=== PATIENT | female | born 1985 | race Caucasian/White ===

== ENCOUNTER 2016-08-15 15:20 | Emergency (ER) | payer MEDICAID ==
[~2016-08-15] VITALS: Ht 154.9 cm; Wt 52.3 kg
[~2016-08-15 15:20] MED LIST: IBUP-1542 PO
[2016-08-15] MEDS ORDERED: SOD CHLORIDE 0.9% 1,000 ML IV STA (15:46)
[2016-08-15 15:52] VITALS: Ht 154.9 cm; Wt 52.3 kg
--- NOTE | 2016-08-15 16:14 | RADRPT ---
PROCEDURE: XR Chest. CLINICAL INDICATION: chest pain, syncope TECHNIQUE: Single frontal view of the chest was obtained COMPARISON: 04/19/2014 FINDINGS: The heart and mediastinum are within normal limits. The lungs are clear. There is no pleural effusion or pneumothorax. RPTAT: AA IMPRESSION: No acute disease. .Danny Cook MD, MD Date Time Electronically viewed and signed by .Danny Cook MD, on 08/15/2016 16:13 .S/
--- NOTE | 2016-08-15 16:14 | RADRPT ---
PROCEDURE: Right wrist x-ray CLINICAL INDICATION: pain TECHNIQUE: AP, lateral and oblique views of the wrist were obtained. COMPARISON: None FINDINGS: There is normal mineralization. No acute fracture or dislocation is seen. There are no significant degenerative changes. There is no significant soft tissue swelling. RPTAT: AA IMPRESSION: Normal x-ray of the right wrist. .Danny Cook MD, MD Date Time Electronically viewed and signed by .Danny Cook MD, on 08/15/2016 16:14 .S/
[2016-08-15 16:17] LABS: BASOPHILS % 0.1 % (0.0-2.0); CHLORIDE 101 mmol/L (97-110); CONDITION 1; EOSINOPHILS % 0.1 % (0.0-7.0); HEMATOCRIT 39.8 % (37.0-47.0); HEMOGLOBIN 13.4 g/dl (12.0-16.0); LYMPHOCYTES # 0.7 10^3/ul (0.8-2.9); LYMPHOCYTES % 5.9 % (15.0-51.0); MEAN CORPUSCULAR HEMOGLOBIN 29.5 pg (29.0-33.0); MEAN CORPUSCULAR HGB CONC 33.7 g/dl (32.0-37.0); MEAN CORPUSCULAR VOLUME 87.4 fl (82.0-101.0); MEAN PLATELET VOLUME 10.1 fl (7.4-10.4); MONOCYTE # 0.6 10^3/ul (0.3-0.9); MONOCYTES % 4.8 % (0.0-11.0); NEUTROPHIL # 10.2 10^3/ul (1.6-7.5); NEUTROPHILS % 89.1 % (39.0-77.0); PLATELET COUNT 225 10^3/UL (140-440); RED BLOOD COUNT 4.56 10^6/ul (4.20-5.40); RED CELL DISTRIBUTION WIDTH 12.9 % (11.5-14.5); SODIUM 140 mmol/L (135-144); UNCORRECTED WBC 11.5 10^3/ul (4.8-10.8); WHITE BLOOD COUNT 11.5 10^3/ul (4.8-10.8)
[2016-08-15 16:18] LABS: POTASSIUM 4.5 mmol/L (3.5-5.1)
[2016-08-15 16:20] LABS: ANION GAP 19 (8-16); CARBON DIOXIDE 25 mmol/L (21-31); CREATININE 0.64 mg/dl (0.44-1.00)
[2016-08-15 16:21] LABS: BLOOD UREA NITROGEN 9 mg/dl (7-20); CALCIUM 9.6 mg/dl (8.4-10.2); GLUCOSE 101 mg/dl (70-220)
[2016-08-15 16:40] LABS: TROPONIN-I < 0.012 ng/ml (0.00-0.12)
[2016-08-15 17:37] LABS: ADD UMIC YES; URINE BILIRUBIN (Dip) NEGATIVE (NEGATIVE); URINE BLOOD (Dip) NEGATIVE (NEGATIVE); URINE COLOR LT. YELLOW (YELLOW); URINE GLUCOSE (Dip) NEGATIVE (NEGATIVE); URINE KETONES (Dip) NEGATIVE (NEGATIVE); URINE LEUKOCYTE ESTERASE (Dip) TRACE (NEGATIVE); URINE NITRITE (Dip) NEGATIVE (NEGATIVE); URINE TOTAL PROTEIN (Dip) NEGATIVE (NEGATIVE); URINE UROBILINOGEN (Dip) 0.2 E.U./dL (0.1-1.0)
[2016-08-15 17:54] LABS: BACTERIA,URINE FEW; URINE RBCS 0-2 /HPF (0)
--- NOTE | 2016-08-15 18:39 | RADRPT ---
PROCEDURE: CT brain without contrast CLINICAL INDICATION: Syncope TECHNIQUE: A CT of the brain was performed utilizing axial sections from the skull base through th e vertex without contrast. Sagittal and coronal images were also reformatted. The exam CTDIvol = 41. 12 mGy and DLP = 630.20 mGy-cm. COMPARISON: None available FINDINGS: No acute intracranial hemorrhage is identified. There is no mass effect or midline shift. No extra -axial fluid collection is seen. The ventricles and sulci are within normal limits for size and con figuration. The density of the brain is within normal limits. Moy-white differentiation is preser cas. The osseous structures are unremarkable. The mastoid air cells and visualized paranasal sinuses are clear. RPTAT:HJJR IMPRESSION: Unremarkable noncontrast CT of the brain. Physician Heath Date Time Electronically viewed and signed by Physician Heath on 08/15/2016 18:39 /
--- NOTE | 2016-08-15 18:41 | RADRPT ---
PROCEDURE: CT cervical spine without contrast. CLINICAL INDICATION: Syncope. Neck pain. TECHNIQUE: CT of the cervical spine without contrast was performed. Axial images were obtained th rough the cervical spine and reformatted at 1.25 mm slice thickness. Coronal and sagittal images wer e reformatted. Exam CTDIvol = 18.05 mGy and DLP = 334.91 mGy-cm. COMPARISON: None available. FINDINGS: Vertebral bodies: The lordosis is straightened. Stature is preserved at every level. There is norm al mineralization and trabeculation. The C1 ring is intact and the predental space is preserved. Central canal and cervical spinal cord: No abnormal density within the spinal cord is evident and no intraspinal masses are delineated. C2-3: The disk is within normal limits. The facet joints are normal. The uncovertebral joints and f oramina are unremarkable. C3-4: The disk is within normal limits. The facet joints are normal. The uncovertebral joints and foramina are unremarkable. C4-5: The disk is within normal limits. The facet joints are normal. The uncovertebral joints and foramina are unremarkable. C5-6: The disk is within normal limits. The facet joints are normal. The uncovertebral joints and foramina are unremarkable. C6-7: The disk is within normal limits. The facet joints are normal. The uncovertebral joints and foramina are unremarkable. C7-T1: The disk is within normal limits. The facet joints are normal. The uncovertebral joints and foramina are unremarkable. Non spine related findings: No abnormalities of significance are seen. RPTAT:HJJR IMPRESSION: 1. Straightening of the normal cervical lordosis may be from positioning but cannot exclude muscle spasm. 2. Otherwise unremarkable noncontrast CT of the cervical spine. Physician Heath Date Time Electronically viewed and signed by Physician Heath on 08/15/2016 18:40 JR/
[2016-08-15] MEDS ORDERED: IBUP800T25 PO (18:59)
--- NOTE | 2016-08-15 19:12 | ERD ---
ER Documentation Chief Complaint Date/Time DATE: 08/15/16 TIME: 19:00 Chief Complaint BROUGHT IN VIA EMS DUE TO SYNCOPAL EPISODE WITH FIELD LOW BS HPI 30-year-old female who presents with an episode of syncope. Glove Cutter use. The patient states that there was a prodrome of vision closing in and slight diaphoresis. She states that there has been multiple episodes of this in the past usually related to borderline glucose. Her Accu-Chek in the field was 50. She was given oral dextrose. The patient did hit her head and lose consciousness. She describes diffuse neck pain, right wrist pain. She denied any prodrome of chest pain, shortness of breath or pleuritic pain. She states over the past 6-9 months she has had approximately 7 episodes of this without full loss of consciousness. She denies any exertional symptoms, no chest pain. She has not been to an emergency room for this process and does not have a primary care doctor. ROS All systems reviewed and are negative except as per history of present illness. Medications Home Meds Active Scripts Ibuprofen* (Motrin*) 800 Mg Tab, 800 MG PO Q6H Y for PAIN AND OR ELEVATED TEMP, #30 TAB Prov:JAVON PRADHAN MD 08/15/16 Discontinued Reported Medications Ibuprofen* (Ibuprofen*) 600 Mg Tablet, 600 MG PO Q6H Y for PAIN, TAB 04/18/14 Allergies Allergies: Coded Allergies: No Known Allergy (Unverified , 08/15/16) PMhx/Soc History of Surgery: Yes () Anesthesia Reaction: No Hx Neurological Disorder: No Hx Respiratory Disorders: No Hx Cardiac Disorders: Yes (hypertension) Hx Psychiatric Problems: No Hx Miscellaneous Medical Probl: No Hx Alcohol Use: No Hx Substance Use: No Hx Tobacco Use: No Smoking Status: Never smoker FmHx Family History: No coronary disease, No diabetes Physical Exam Vitals Vital Signs Date Time Temp Pulse Resp B/P Pulse Ox O2 Delivery O2 Flow Rate FiO2 08/15/16 19:39 90 16 112/74 100 Room Air 08/15/16 17:00 88 22 108/62 97 Room Air 08/15/16 15:52 98.2 80 18 118/81 98 Physical Exam General: Well developed, well nourished, no acute distress Head: Normocephalic, atraumatic other than small occipital hematoma Eyes: Pupils equally reactive, EOM intact ENT: Moist mucous membranes Neck: Supple, no lymphadenopathy, diffuse paraspinal soft tissue tenderness to the neck with intermittent midline tenderness but no deformities Respiratory: Lungs clear bilaterally, no distress Cardiovascular: RRR, no murmurs, rubs, or gallops Abdominal: Soft, non-tender, non-distended, no peritoneal signs : Deferred MSK: No edema, no unilateral swelling, 5/5 strength. Soft tissue tenderness to the right wrist with full active and passive range of motion, no snuffbox tenderness. Radial, median, ulnar nerves are intact. Neurologic: Alert and oriented, moving all extremities, normal speech, no focal weakness, no cerebellar signs Skin: Small abrasion noted the right wrist Psych: Normal mood Result Diagram: 08/15/16 1555 08/15/16 1555 Results 24 hrs Laboratory Tests Test 08/15/16 15:55 08/15/16 17:25 Anion Gap 19 Basophils # 0.010^3/ul Basophils % 0.1% Blood Urea Nitrogen 9mg/dl Calcium Level 9.6mg/dl Carbon Dioxide Level 25mmol/L Chloride Level 101mmol/L Creatinine 0.64mg/dl Eosinophils # 0.010^3/ul Eosinophils % 0.1% Glucose Level 101mg/dl Hematocrit 39.8% Hemoglobin 13.4g/dl Lymphocytes # 0.710^3/ul Lymphocytes % 5.9% Mean Corpuscular Hemoglobin 29.5pg Mean Corpuscular Hemoglobin Concent 33.7g/dl Mean Corpuscular Volume 87.4fl Mean Platelet Volume 10.1fl Monocytes # 0.610^3/ul Monocytes % 4.8% Neutrophils # 10.210^3/ul Neutrophils % 89.1% Nucleated Red Blood Cells # 0.010^3/ul Nucleated Red Blood Cells % 0.0/100WBC Platelet Count 72484^3/UL Potassium Level 4.5mmol/L Red Blood Count 4.5610^6/ul Red Cell Distribution Width 12.9% Sodium Level 140mmol/L Troponin I < 0.012ng/ml White Blood Count 11.510^3/ul Urine Bacteria FEW Urine Bilirubin NEGATIVE Urine Clarity CLEAR Urine Color LT. YELLOW Urine Epithelial Cells FEW Urine Glucose NEGATIVE% Urine Hemoglobin NEGATIVE Urine Ketones NEGATIVE Urine Leukocyte Esterase TRACE Urine Microscopic RBC 0-2/HPF Urine Microscopic WBC 5-10/HPF Urine Nitrite NEGATIVE Urine Specific Bartlett 1.015 Urine Total Protein NEGATIVE Urine Urobilinogen 0.2 E.U./dL Urine pH 8.5 Current Medications Medications (Trade) Dose Ordered Sig/Priya Route PRN Reason Start Time Stop Time Status Last Admin Dose Admin Sodium Chloride (NS) 1,000 ml @ 1,000 mls/hr Q1H STAT IV 08/15/16 15:46 08/15/16 16:45 DC Procedures/MDM EKG, MONITORS, & DIAGNOSTIC IMAGING: EKG: I reviewed and interpreted a 12-lead EKG. Rhythm: Normal sinus rhythm Ectopy: None Intervals: No abnormalities QT is 432, QTc is 475, no Brugada ST segments: No elevations or depressions T waves: No contiguous inversions X-ray right wrist: I reviewed and interpreted multiple views of the x-ray Bones: No evidence of acute fracture dislocation or subluxation Soft tissue: No evidence of foreign body Chest x-ray: I reviewed and interpreted a 1 view of the chest Mediastinum: No enlargement Cardiac silhouette: No cardiomegaly Airspace: Clear lung mojica bilaterally without evidence of pneumothorax Bones: No evidence of fracture CT brain: No acute process CT cervical spine: No acute process LAB INTERPRETATION: Normal glucose, negative ECG MEDICAL DECISION MAKING: The patient is describing approximately 7 episodes of syncope over a 6-9 month period. This is concerning. Consider possible vasovagal syndrome given her prodrome. This does not seem to be a consistent with cardiogenic etiology, no exertional symptoms, no murmur. Her glucose has been low in the past but she has never been evaluated. It seems unlikely that this would be an insulinoma, her glucose is normal here. She continues to be well-appearing. The patient did fall hit her head she has a small occipital hematoma and is having neck pain. CT imaging of the head and neck would be appropriate. She has no snuffbox tenderness of the right wrist. ER COURSE: The patient continue be well-appearing I was able to clinically clear his cervical spine. The patient had a borderline QT. Given the patient's recurrent episodes of syncope it would be unlikely but not impossible that this is a prolonged QT syndrome. For this reason I spoke to Dr. Crowe who was kind enough to review the case. He reviewed the EKG. He did recommend inpatient hospitalization for close observation though felt that it was borderline prolonged and unlikely to be clinically significant. I had a prolonged conversation with the patient using an nurse sitter. I discussed the risk benefits and alternatives and recommended inpatient hospitalization. For family reasons the patient does not wish to be hospitalized. Unfortunately she does not have a primary care physician which is 1 of the reasons why I wanted her hospitalized. However she states understanding of the risks benefits and alternatives and would like to leave against my medical advice. I understand her decision but strongly recommended close primary care follow-up and return precautions for any recurrent syncope. I kept the patient and/or family informed of laboratory and diagnostic imaging results throughout the emergency room course. DISPOSITION PLAN: We discussed follow up with the patient's primary care doctor within 24 to 48 hours as needed. We also discussed return to the emergency room for worsening symptoms or worsening condition. Discharge Medications: Motrin Departure Diagnosis: Primary Impression: Syncope Syncope type: unspecified Qualified Code: R55 - Syncope, unspecified syncope type Additional Impressions: Hypoglycemia Contusion of right wrist Encounter type: initial encounter Qualified Code: S60.211A - Contusion of right wrist, initial encounter Condition: Stable Patient Instructions: Causes of Syncope, Syncope, Unk Cause Referrals: [facility] Usted se zhou hecho un examen mdico de control que le indica que no est en dennise condicin que requiera tratamiento urgente en el Departamento de Emergencia. Un estudio ms profundo y el tratamiento de collier condicin pueden esperar sin ningn riesgo hasta que usted sea atendida/o en el consultorio de collier mdico o dennise cl sonam. Es responsabilidad suya arreglar dennise lizeth para el seguimiento del patricia. MANEJO DE CONDICIONES NO URGENTES EN EL FUTURO 1) Si usted tiene un mdico de atencin primaria: Usted debera llamar a collier mdico de atencin primaria antes de venir al departamento de emergencia. Despus de las horas de consultorio, collier doctor o collier asociado/a est disponible por telfono. El mdico o enfermero de renetta en el servicio telefnico puede asesorarle por mandy medio para atender el problema, o patricia contrario se puede programar dennise lizeth. 2) Si usted no tiene un mdico de atencin primaria: Llame al mdico o clnica de referencia que aparece abajo carina las horas de consultorio para hacer dennise lizeth para que le vean. CLINICAS: [facility] [phone] [facility] [phone] [facility] [phone] [address] [facility] [phone] [address] [facility]. [facility] [phone] [address] [facility] [phone] [address] [facility]. [facility] () Usted se zhou hecho un examen mdico de control que le indica que no est en dennise condicin que requiera tratamiento urgente en el Departamento de Emergencia. Un estudio ms profundo y el tratamiento de collier condicin pueden esperar sin ningn riesgo hasta que usted sea atendida/o en el consultorio de collier mdico o dennise cl sonam. Es responsabilidad suya arreglar dennise lizeth para el seguimiento del patricia. MANEJO DE CONDICIONES NO URGENTES EN EL FUTURO 1) Si usted tiene un mdico de atencin primaria: Usted debera llamar a collier mdico de atencin primaria antes de venir al departamento de emergencia. Despus de las horas de consultorio, collier doctor o collier asociado/a est disponible por telfono. El mdico o enfermero de renetta en el servicio telefnico puede asesorarle por mandy medio para atender el problema, o patricia contrario se puede programar dennise lizeth. 2) Si usted no tiene un mdico de atencin primaria: Llame al mdico o condado institucions de referencia que aparece abajo carina las horas de consultorio para hacer dennise lizeth para que le vean. SI USTED NO PUEDE PAGAR PARA GIDEON UN MEDICO puede ir a: [facility] [address] [place] [address] [facility] [address] [place] [address] [facility] [address] [place] [address] [facility] [address] [place], [place] [id number] Additional Instructions: Llame al doctor nombrado abajo (Referral Sources) MAANA y preet dennise LIZETH PARA DENTRO DE DENNISE SEMANA. Dgale a la secretaria que nosotros le instruimos hacer esta lizeth.Avise o llame si collier condicin se empeora antes de la lizeth. JAVON PRADHAN MD Aug 15, 2016 19:12
[2016-08-15 19:39] VITALS: BP 112/74; PULSE 90; RESP 16
== END 2016-08-15 20:02 | disposition home or self-care (01) ==
LOC: E/R 15:20
DX: R55 Syncope and collapse (principal); E16.2 Hypoglycemia, unspecified; S60.211A Contusion of right wrist, initial encounter; I10 Essential (primary) hypertension; W01.198A Fall on same level from slipping, tripping and stumbling with subsequent striking against other object, initial encounter; Y92.9 Unspecified place or not applicable
CPT/HCPCS: 70450; 71010; 72125; 73110; 80048; 81001; 83735; 84484; 85025; 93005; J7030; Z7502; 81003

== ENCOUNTER 2017-03-30 02:56 | Emergency (ER) | payer MEDICAID ==
[~2017-03-30] VITALS: Ht 157.5 cm; Wt 42.7 kg
[~2017-03-30 02:56] MED LIST changes: -IBUP-1542 PO; +IBUP800T25 PO
[2017-03-30 03:08] VITALS: Ht 157.5 cm; Wt 42.7 kg
[2017-03-30 03:51] LABS: URINE BLOOD (Dip) POC Negative (NEGATIVE)
[2017-03-30] MEDS ORDERED: SOD CHLORIDE 0.9% 1,000 ML IV STA (04:02)
[2017-03-30 04:23] LABS: BASOPHILS % 0.2 % (0.0-2.0); EOSINOPHILS % 0.1 % (0.0-7.0); HEMATOCRIT 38.9 % (37.0-47.0); HEMOGLOBIN 13.9 g/dl (12.0-16.0); LYMPHOCYTES # 1.1 10^3/ul (0.8-2.9); LYMPHOCYTES % 11.7 % (15.0-51.0); MEAN CORPUSCULAR HEMOGLOBIN 30.4 pg (29.0-33.0); MEAN CORPUSCULAR HGB CONC 35.7 g/dl (32.0-37.0); MEAN CORPUSCULAR VOLUME 85.1 fl (82.0-101.0); MEAN PLATELET VOLUME 11.6 fl (7.4-10.4); MONOCYTE # 0.5 10^3/ul (0.3-0.9); MONOCYTES % 5.1 % (0.0-11.0); NEUTROPHILS % 82.7 % (39.0-77.0); PLATELET COUNT 212 10^3/UL (140-415); RED BLOOD COUNT 4.57 10^6/ul (4.20-5.40); RED CELL DISTRIBUTION WIDTH 12.2 % (11.5-14.5); WHITE BLOOD COUNT 9.7 10^3/ul (4.8-10.8)
[2017-03-30 04:38] LABS: INR 1.08; PT RATIO 1.1
[2017-03-30 04:39] LABS: PARTIAL THROMBOPLASTIN TIME 26.5 Sec (25.0-35.0)
[2017-03-30 04:42] LABS: ALANINE AMINOTRANSFERASE 38 IU/L (13-69); ALBUMIN 4.1 g/dl (3.3-4.9); ALBUMIN/GLOBULIN RATIO 1.13; ALKALINE PHOSPHATASE 97 IU/L (42-121); ANION GAP 12 (8-16); ASPARTATE AMINO TRANSFERASE 27 IU/L (15-46); BILIRUBIN,INDIRECT 0.8 mg/dl (0-1.1); BILIRUBIN,TOTAL 0.8 mg/dl (0.2-1.3); BLOOD UREA NITROGEN 8 mg/dl (7-20); CARBON DIOXIDE 21 mmol/L (21-31); CHLORIDE 105 mmol/L (97-110); CREATININE 0.65 mg/dl (0.44-1.00); GLUCOSE 99 mg/dl (70-220); SODIUM 135 mmol/L (135-144); TOTAL PROTEIN 7.7 g/dl (6.1-8.1)
[2017-03-30] MEDS ORDERED: ALPRAZOLAM 0.25 MG TAB PO ONE (05:08)
[2017-03-30] MEDS ORDERED: POTASSIUM CHLORIDE (SR) 20 MEQ TAB PO ONE (05:08)
[2017-03-30 05:22] LABS: TROPONIN-I < 0.012 ng/ml (0.00-0.12)
[2017-03-30] MEDS ORDERED: LIDOCAINE/MYLANTA 40 ML BTL PO ONE (05:30)
[2017-03-30] MEDS ORDERED: RANI150T9 PO (05:52)
[2017-03-30] MEDS ORDERED: ONDA4TAB11 PO (05:52)
[2017-03-30 06:04] VITALS: BP 109/67; PULSE 89; RESP 18
--- NOTE | 2017-03-30 06:05 | ERD ---
ER Documentation Chief Complaint Date/Time DATE: 03/30/17 TIME: 05:56 Chief Complaint chest pain x 3 days on and off, weakness, dizzinesss, abnorma labs low hgb HPI This 31-year-old female presents for on and off chest pain for 3 days as well as lightheadedness and tiredness. She states that she has a history of very low hemoglobin. She denies any GI bleeding vaginal bleeding or vaginal symptoms. Denies cough fever or chills. ROS All systems reviewed and are negative except as per history of present illness. Medications Home Meds Active Scripts Ondansetron (Zofran Odt) 4 Mg Tab.rapdis, 4 MG PO Q6, #10 Prov:CORINNE MEYERS DO 03/30/17 Ranitidine Hcl* (Zantac*) 150 Mg Tablet, 150 MG PO BID, #60 TAB Prov:CORINNE MEYERS DO 03/30/17 Discontinued Scripts Ibuprofen* (Motrin*) 800 Mg Tab, 800 MG PO Q6H Y for PAIN AND OR ELEVATED TEMP, #30 TAB Prov:JAVON PRADHAN MD 08/15/16 Allergies Allergies: Coded Allergies: No Known Allergy (Unverified , 03/30/17) PMhx/Soc History of Surgery: Yes (c/s x 2) Anesthesia Reaction: No Hx Neurological Disorder: No Hx Respiratory Disorders: No Hx Cardiac Disorders: Yes (hypertension) Hx Psychiatric Problems: No Hx Miscellaneous Medical Probl: Yes (anemia) Hx Alcohol Use: No Hx Substance Use: No Hx Tobacco Use: No Smoking Status: Never smoker Physical Exam Vitals Vital Signs Date Time Temp Pulse Resp B/P Pulse Ox O2 Delivery O2 Flow Rate FiO2 03/30/17 03:08 98.3 69 20 129/69 100 Physical Exam Const: [] Mild distress, appears uncomfortable Head: Atraumatic Eyes: Normal Conjunctiva ENT: Normal External Ears, Nose and Mouth. Neck: Full range of motion..~ No meningismus. Resp: Clear to auscultation bilaterally Cardio: Regular rate and rhythm, no murmurs Abd: Soft, non tender, non distended. Normal bowel sounds Skin: No petechiae or rashes Back: No midline or flank tenderness Ext: No cyanosis, or edema Neur: Awake and alert and oriented 3, no acute stress. Psych: Normal Mood and Affect Result Diagram: 03/30/17 0403 03/30/17 0403 Results 24 hrs Laboratory Tests Test 03/30/17 03:57 03/30/17 04:03 Bedside Urine pH (LAB) 7.0 Bedside Urine Protein (LAB) Negative Bedside Urine Glucose (UA) Negative Bedside Urine Ketones (LAB) Trace Bedside Urine Blood Negative Bedside Urine Nitrite (LAB) Negative Bedside Urine Leukocyte Esterase (L Negative White Blood Count 9.710^3/ul Red Blood Count 4.5710^6/ul Hemoglobin 13.9g/dl Hematocrit 38.9% Mean Corpuscular Volume 85.1fl Mean Corpuscular Hemoglobin 30.4pg Mean Corpuscular Hemoglobin Concent 35.7g/dl Red Cell Distribution Width 12.2% Platelet Count 84275^3/UL Mean Platelet Volume 11.6fl Neutrophils % 82.7% Lymphocytes % 11.7% Monocytes % 5.1% Eosinophils % 0.1% Basophils % 0.2% Nucleated Red Blood Cells % 0.0/100WBC Neutrophils # 8.010^3/ul Lymphocytes # 1.110^3/ul Monocytes # 0.510^3/ul Eosinophils # 0.010^3/ul Basophils # 0.010^3/ul Nucleated Red Blood Cells # 0.010^3/ul Prothrombin Time 14.0Sec Prothrombin Time Ratio 1.1 INR International Normalized Ratio 1.08 Activated Partial Thromboplast Time 26.5Sec Sodium Level 135mmol/L Potassium Level 3.0mmol/L Chloride Level 105mmol/L Carbon Dioxide Level 21mmol/L Anion Gap 12 Blood Urea Nitrogen 8mg/dl Creatinine 0.65mg/dl Glucose Level 99mg/dl Calcium Level 9.0mg/dl Total Bilirubin 0.8mg/dl Direct Bilirubin 0.00mg/dl Indirect Bilirubin 0.8mg/dl Aspartate Amino Transf (AST/SGOT) 27IU/L Alanine Aminotransferase (ALT/SGPT) 38IU/L Alkaline Phosphatase 97IU/L Troponin I < 0.012ng/ml Total Protein 7.7g/dl Albumin 4.1g/dl Globulin 3.60g/dl Albumin/Globulin Ratio 1.13 Current Medications Medications (Trade) Dose Ordered Sig/Priya Route PRN Reason Start Time Stop Time Status Last Admin Dose Admin Sodium Chloride (NS) 1,000 ml @ 1,000 mls/hr Q1H STAT IV 03/30/17 04:02 03/30/17 05:01 DC 03/30/17 04:24 Miscellaneous Medication (Gi Cocktail (2)) 40 ml ONCE ONCE PO 03/30/17 05:30 03/30/17 05:31 DC 03/30/17 05:25 Potassium Chloride (Klor-Con 20) 40 meq ONCE ONCE PO 03/30/17 05:08 03/30/17 05:09 DC 03/30/17 05:25 Alprazolam (Xanax) 0.5 mg ONCE ONCE PO 03/30/17 05:08 03/30/17 05:09 DC 03/30/17 05:25 Procedures/MDM And adult female with chest pain possibly associated with GERD. No anemia to speak patient was very concerned she had severe anemia once again. She has mild hyperkalemia and was treated with a potassium p.o. tablet.. She was also given a liter of normal saline and a GI cocktail after which she felt much better. She is not I am discharging her with primary care follow-up as well as return precautions. EKG interpretation: Normal sinus rhythm rate of 73, normal axis, mildly shortened DE interval, no ST or T-wave changes concerning for acute ischemia. secured entrance monitor interpretation: Normal sinus rhythm without arrhythmia Departure Diagnosis: Primary Impression: Light-headed Additional Impressions: Chest pain Hypokalemia Condition: Stable Patient Instructions: Nausea and Vomiting-Adult, Chest Pain, Uncertain Cause Referrals: [facility] YOU HAVE RECEIVED A MEDICAL SCREENING EXAM AND THE RESULTS INDICATE THAT YOU DO NOT HAVE A CONDITION THAT REQUIRES URGENT TREATMENT IN THE EMERGENCY DEPARTMENT. FURTHER EVALUATION AND TREATMENT OF YOUR CONDITION CAN WAIT UNTIL YOU ARE SEEN IN YOUR DOCTORS OFFICE WITHIN THE NEXT 1-2 DAYS. IT IS YOUR RESPONSIBILITY TO MAKE AN APPOINTMENT FOR FOLOW-UP CARE. IF YOU HAVE A PRIMARY DOCTOR --you should call your primary doctor and schedule an appointment IF YOU DO NOT HAVE A PRIMARY DOCTOR YOU CAN CALL OUR PHYSICIAN REFERRAL HOTLINE AT IF YOU CAN NOT AFFORD TO SEE A PHYSICIAN YOU CAN CHOSE FROM THE FOLLOWING [facility] CLINICS [facility] [address] [facility]. [facility] [address] [facility]. [facility] [address] [facility] [facility] [address] [facility]. [facility] [address] [facility]. [facility]. [address] Additional Instructions: Llame al doctor MAANA y preet dennise LIZETH PARA DENTRO DE 2-3 GUERRERO.Dgale a la secretaria que nosotros le instruimos hacer esta lizeth.Avise o llame si collier condicin se empeora antes de la lizeth. Regresa aqui si peor o no mejor. CORINNE MEYERS DO Mar 30, 2017 06:05
== END 2017-03-30 06:05 | disposition home or self-care (01) ==
LOC: E/R 02:56
DX: R42 Dizziness and giddiness (principal); R07.9 Chest pain, unspecified; E87.6 Hypokalemia; I10 Essential (primary) hypertension
CPT/HCPCS: 36415; 80053; 81003; 84484; 85025; 85610; 85730; 93005; J7030; Z7502; Z7610

== ENCOUNTER 2017-04-07 18:12 | Emergency (ER) | payer MEDICAID ==
[~2017-04-07] VITALS: Ht 154.9 cm; Wt 46.5 kg
[~2017-04-07 18:12] MED LIST changes: -IBUP800T25 PO; +ONDA4TAB11 PO; +RANI150T9 PO
[2017-04-07 18:15] VITALS: Ht 154.9 cm; Wt 46.5 kg
[2017-04-07] MEDS ORDERED: ONDANSETRON 4 MG INJ IV STA (18:33)
[2017-04-07] MEDS ORDERED: SOD CHLORIDE 0.9% 1,000 ML IV STA (18:33)
[2017-04-07] MEDS ORDERED: FAMOTIDINE 20 MG TAB PO STA (18:33)
--- NOTE | 2017-04-07 18:35 | ERD ---
ER Documentation Chief Complaint Date/Time DATE: 04/07/17 TIME: 18:34 Chief Complaint Complains of epigastric pain x 2 days HPI 31-year-old female without any stated medical problems presenting to the emergency department complaining of intermittent epigastric pain that radiates to her back for the past month which worsening constant pain in the past 2 days. Patient associated with nausea and was non-bloody nonbilious vomiting. Patient denies any fevers, diarrhea. Denies any abdominal surgeries. States that she does not take any medications ROS All systems reviewed and are negative except as per history of present illness. Medications Home Meds Active Scripts Ondansetron (Ondansetron Odt) 4 Mg Tab.rapdis, 4 MG PO Q6H Y for NAUSEA AND/OR VOMITING, #10 TAB Prov:RADHA GUADALUPE PA-C 04/07/17 Acetaminophen* (Tylenol*) 325 Mg Tablet, 2 TAB PO Q4 Y for PAIN AND OR ELEVATED TEMP, #30 TAB Prov:RADHA GUADALUPE PA-C 04/07/17 Ondansetron (Zofran Odt) 4 Mg Tab.rapdis, 4 MG PO Q6, #10 Prov:CORINNE MEYERS DO 03/30/17 Ranitidine Hcl* (Zantac*) 150 Mg Tablet, 150 MG PO BID, #60 TAB Prov:CORINNE MEYERS DO 03/30/17 Allergies Allergies: Coded Allergies: No Known Allergy (Unverified , 03/30/17) PMhx/Soc History of Surgery: Yes (c/s x 2) Anesthesia Reaction: No Hx Neurological Disorder: No Hx Respiratory Disorders: No Hx Cardiac Disorders: Yes (hypertension) Hx Psychiatric Problems: No Hx Miscellaneous Medical Probl: Yes (anemia) Hx Alcohol Use: No Hx Substance Use: No Hx Tobacco Use: No Physical Exam Vitals Vital Signs Date Time Temp Pulse Resp B/P Pulse Ox O2 Delivery O2 Flow Rate FiO2 04/07/17 18:15 98.5 89 20 126/79 100 Physical Exam GENERAL: well-developed/well-nourished, in no apparent distress, non-toxic appearing HENT: NC/AT, moist mucous membranes EYES: Conjunctiva normal NECK: Supple, no lymphadenopathy PULM: CTA bilaterally, no rales, rhonchi, or wheezing heard CV: Normal S1S2, RRR, good capillary refill GI: Soft, non-distended, tender to palpation gastric and right upper quadrant Normal bowel sounds, no masses or organomegaly felt on exam No gross peritonitis, no bruits Negative Rovsing, negative Hammonds, negative McBurney's point, Negative CVAT BACK: No masses EXT: No clubbing, cyanosis, or edema NEURO: Alert and Orientated SKIN: Intact, normal turgor PSYCH: Normal mood and mentation Result Diagram: 04/07/17185404/07/171854 Results 24 hrs Laboratory Tests Test 04/07/17 18:45 04/07/17 18:55 Urine Color STRAW Urine Clarity CLEAR Urine pH 7.0 Urine Specific [place] 1.002 Urine Ketones NEGATIVEmg/dL Urine Nitrite NEGATIVEmg/dL Urine Bilirubin NEGATIVEmg/dL Urine Urobilinogen NEGATIVEmg/dL Urine Leukocyte Esterase NEGATIVELeu/ul Urine Microscopic RBC 1/HPF Urine Microscopic WBC 0/HPF Urine Hemoglobin 2+mg/dL Urine Glucose NEGATIVEmg/dL Urine Total Protein NEGATIVEmg/dl White Blood Count 4.210^3/ul Red Blood Count 4.1510^6/ul Hemoglobin 12.9g/dl Hematocrit 36.4% Mean Corpuscular Volume 87.7fl Mean Corpuscular Hemoglobin 31.1pg Mean Corpuscular Hemoglobin Concent 35.4g/dl Red Cell Distribution Width 12.2% Platelet Count 54257^3/UL Mean Platelet Volume 11.3fl Neutrophils % 36.1% Lymphocytes % 48.6% Monocytes % 13.0% Eosinophils % 1.9% Basophils % 0.2% Nucleated Red Blood Cells % 0.0/100WBC Neutrophils # 1.510^3/ul Lymphocytes # 2.110^3/ul Monocytes # 0.610^3/ul Eosinophils # 0.110^3/ul Basophils # 0.010^3/ul Nucleated Red Blood Cells # 0.010^3/ul Sodium Level 134mmol/L Potassium Level 3.8mmol/L Chloride Level 101mmol/L Carbon Dioxide Level 22mmol/L Anion Gap 15 Blood Urea Nitrogen 7mg/dl Creatinine 0.96mg/dl Glucose Level 87mg/dl Calcium Level 8.6mg/dl Total Bilirubin 0.2mg/dl Direct Bilirubin 0.00mg/dl Indirect Bilirubin 0.2mg/dl Aspartate Amino Transf (AST/SGOT) 29IU/L Alanine Aminotransferase (ALT/SGPT) 33IU/L Alkaline Phosphatase 87IU/L Total Protein 7.7g/dl Albumin 4.1g/dl Globulin 3.60g/dl Albumin/Globulin Ratio 1.13 Lipase 122U/L Current Medications Medications (Trade) Dose Ordered Sig/Priya Route PRN Reason Start Time Stop Time Status Last Admin Dose Admin Sodium Chloride (NS) 1,000 ml @ 1,000 mls/hr Q1H STAT IV 04/07/17 18:33 04/07/17 19:32 DC 04/07/17 19:03 Ondansetron HCl (Zofran Inj) 8 mg ONCE STAT IV 04/07/17 18:33 04/07/17 18:34 DC 04/07/17 19:02 Famotidine (Pepcid) 20 mg ONCE STAT PO 04/07/17 18:33 04/07/17 18:34 DC 04/07/17 19:03 Procedures/MDM Is a 31-year-old female presenting to the emergency department complaining of [place] epigastric pain, nausea vomiting for the past month but this is likely due to cholelithiasis or gallbladder polyps. He is well-appearing, afebrile aseptic and appropriate to be discharged home to follow-up with a primary care physician. Lab work was drawn. CBC did not show any evidence of leukocytosis or anemia. CMP did not show any evidence of renal, liver, or electrolyte abnormalities. Lipase was normal. UA did not show any evidence of hemoglobin or urinary tract infection. [I doubt patient has sepsis, choledocholithiasis, cholecystitis or cholangitis, pancreatitis or other acute abdomen conditions due to physical examination and diagnostic testing. Patient appears well and nontoxic appearing with stable vital signs. Gallbladder: Multiple adherent hyperechoic foci along the gallbladder wall measuring up to 3 mm, and a may represent polyps or cholelithiasis. No evidence of cholecystitis. Diagnostic testing and instructions were given to patient. Pain control and antiemetic prescriptions were provided for outpatient self-care. Discussed with patient to follow-up with primary care for GI referral. Precautions were given to return to the ER for fever, intractable pain, increased vomiting, and other worsening signs and symptoms. Patient expressed agreement and understanding of this plan. Departure Diagnosis: Primary Impression: Cholelithiasis Condition: Stable BASHARDOUST,NUSHA N. PA-C Apr 07, 2017 18:35
[2017-04-07 19:01] LABS: ADD UMIC YES; UR ASCORBIC ACID NEGATIVE (NEGATIVE); UR BILIRUBIN (Dip) NEGATIVE (NEGATIVE); UR BLOOD (Dip) 2+ mg/dL (NEGATIVE); UR CLARITY CLEAR (CLEAR); UR COLOR STRAW (YELLOW); UR GLUCOSE (Dip) NEGATIVE (NEGATIVE); UR KETONES (Dip) NEGATIVE (NEGATIVE); UR LEUKOCYTE ESTERASE (Dip) NEGATIVE Leu/ul (NEGATIVE); UR NITRITE (Dip) NEGATIVE (NEGATIVE); UR RBC 1 /HPF (0-5); UR SPECIFIC GRAVITY (Dip) 1.002 (1.003-1.030); UR TOTAL PROTEIN (Dip) NEGATIVE (NEGATIVE); UR UROBILINOGEN (Dip) NEGATIVE (NEGATIVE)
[2017-04-07 19:03] LABS: BASOPHILS % 0.2 % (0.0-2.0); EOSINOPHILS # 0.1 10^3/ul (0.0-0.5); EOSINOPHILS % 1.9 % (0.0-7.0); HEMATOCRIT 36.4 % (37.0-47.0); HEMOGLOBIN 12.9 g/dl (12.0-16.0); LYMPHOCYTES # 2.1 10^3/ul (0.8-2.9); LYMPHOCYTES % 48.6 % (15.0-51.0); MEAN CORPUSCULAR HEMOGLOBIN 31.1 pg (29.0-33.0); MEAN CORPUSCULAR HGB CONC 35.4 g/dl (32.0-37.0); MEAN CORPUSCULAR VOLUME 87.7 fl (82.0-101.0); MEAN PLATELET VOLUME 11.3 fl (7.4-10.4); MONOCYTE # 0.6 10^3/ul (0.3-0.9); NEUTROPHIL # 1.5 10^3/ul (1.6-7.5); NEUTROPHILS % 36.1 % (39.0-77.0); PLATELET COUNT 197 10^3/UL (140-415); RED BLOOD COUNT 4.15 10^6/ul (4.20-5.40); RED CELL DISTRIBUTION WIDTH 12.2 % (11.5-14.5); WHITE BLOOD COUNT 4.2 10^3/ul (4.8-10.8)
[2017-04-07 19:33] LABS: ALBUMIN 4.1 g/dl (3.3-4.9); ALBUMIN/GLOBULIN RATIO 1.13; BILIRUBIN,INDIRECT 0.2 mg/dl (0-1.1); BILIRUBIN,TOTAL 0.2 mg/dl (0.2-1.3); CALCIUM 8.6 mg/dl (8.4-10.2); CREATININE 0.96 mg/dl (0.44-1.00); POTASSIUM 3.8 mmol/L (3.5-5.1); TOTAL PROTEIN 7.7 g/dl (6.1-8.1)
--- NOTE | 2017-04-07 19:56 | RADRPT ---
PROCEDURE: US Abdomen (right upper quadrant). CLINICAL INDICATION: abdominal pain TECHNIQUE: Multiple real-time longitudinal and transverse images of the right upper quadrant of th e abdomen were acquired utilizing a curved array transducer. Images were reviewed on a high-resoluti on PACS workstation. COMPARISON: None FINDINGS: The exam is technically limited due to body habitus and bowel gas. The liver is normal in size and echogenicity, without focal mass or intrahepatic biliary dilatation. The gallbladder contains multiple tiny, nonmobile, anterior echogenic foci along the gallbladder wal l measuring up to 3 mm. Findings could either represent polyps or adherent calculi, favoring polyps. . There is no pericholecystic fluid or gallbladder wall thickening. No intra or extrahepatic biliary dilatation is seen. The common bile duct measures 2.1 mm in maximal dimension. There is limited visualization of the pancreas. The pancreatic duct is upper limits of normal, measu ring 2 mm. The pancreas is mildly hypoechoic. If there is concern for pancreatitis, consider CT for further evaluation. No free fluid is identified. The right kidney measures 8.1 cm in length. There is normal echogenicity within the right kidney. There is no perinephric fluid collection. No hydronephrosis, mass, or calculus is seen. IMPRESSION: 1. Multiple adherent hyperechoic foci along the gallbladder wall measuring up to 3 mm, and a may re present polyps or cholelithiasis. No evidence of cholecystitis. RPTAT: QQ .Louie Wilder MD, Date Time Electronically viewed and signed by .Louie Wilder MD, MD on 04/07/2017 19:55 .M/
[2017-04-07] MEDS ORDERED: ONDA4TAB14 PO (19:58)
[2017-04-07] MEDS ORDERED: ACET325T33 PO (19:58)
[2017-04-07 20:05] VITALS: BP 126/67; PULSE 71; RESP 17; TEMP 97.8
== END 2017-04-07 20:05 | disposition home or self-care (01) ==
LOC: FTE 18:12
DX: K80.20 Calculus of gallbladder without cholecystitis without obstruction (principal); R11.2 Nausea with vomiting, unspecified; I10 Essential (primary) hypertension
CPT/HCPCS: 36415; 76705; 80053; 81001; 83690; 85025; 96374; J2405; J7030; Z7502; Z7610

== ENCOUNTER 2017-06-08 17:10 | Emergency (ER) | payer MEDICAID ==
[~2017-06-08] VITALS: Ht 149.9 cm; Wt 42.5 kg
[~2017-06-08 17:10] MED LIST changes: +ACET325T33 PO; +ONDA4TAB14 PO
[2017-06-08 17:12] VITALS: Ht 149.9 cm; Wt 42.5 kg
[2017-06-08] MEDS ORDERED: FAMOTIDINE 20 MG INJ IV STA (19:18)
[2017-06-08] MEDS ORDERED: KETOROLAC 30 MG INJ IV STA (19:18)
[2017-06-08] MEDS ORDERED: SOD CHLORIDE 0.9% 1,000 ML IV STA (19:18)
[2017-06-08] MEDS ORDERED: HYDROCODONE/APAP (5/325) TAB PO ONE (19:30)
[2017-06-08] MEDS ORDERED: LIDOCAINE/MYLANTA 40 ML BTL PO ONE (19:30)
[2017-06-08] MEDS ORDERED: ONDANSETRON 4 MG INJ IV STA (19:48)
[2017-06-08 20:15] LABS: ALBUMIN 4.8 g/dl (3.3-4.9); ALBUMIN/GLOBULIN RATIO 1.29; BILIRUBIN,INDIRECT 1.1 mg/dl (0-1.1); BILIRUBIN,TOTAL 1.1 mg/dl (0.2-1.3); CALCIUM 9.5 mg/dl (8.4-10.2); CREATININE 0.67 mg/dl (0.44-1.00); POTASSIUM 4.5 mmol/L (3.5-5.1); TOTAL PROTEIN 8.5 g/dl (6.1-8.1)
--- NOTE | 2017-06-08 20:30 | RADRPT ---
PROCEDURE: XR Chest. CLINICAL INDICATION: Epigastric pain. TECHNIQUE: AP view of the chest was obtained. COMPARISON: 08/15/2016 FINDINGS: The cardiomediastinal silhouette is within normal limits. The lungs are clear. No signs of pleural f luid or pneumothorax are seen. The osseous structures and soft tissues are unremarkable. IMPRESSION: 1. No evidence for active cardiopulmonary disease. RPTAT: HGAS .Lul Menendez MD, MD Date Time Electronically viewed and signed by .Lul Menendez MD, on 06/08/2017 20:29 .S/
[2017-06-08 20:36] LABS: ADD UMIC YES; UR ASCORBIC ACID NEGATIVE (NEGATIVE); UR BILIRUBIN (Dip) NEGATIVE (NEGATIVE); UR BLOOD (Dip) NEGATIVE (NEGATIVE); UR CLARITY SLIGHTLY CLOUDY (CLEAR); UR COLOR YELLOW (YELLOW); UR GLUCOSE (Dip) NEGATIVE (NEGATIVE); UR KETONES (Dip) 1+ mg/dL (NEGATIVE); UR LEUKOCYTE ESTERASE (Dip) 2+ Leu/ul (NEGATIVE); UR MUCUS FEW /HPF (NONE SEEN); UR NITRITE (Dip) NEGATIVE (NEGATIVE); UR RBC 4 /HPF (0-5); UR SPECIFIC GRAVITY (Dip) 1.016 (1.003-1.030); UR SQUAMOUS EPITHELIAL CELL FEW /HPF (FEW); UR TOTAL PROTEIN (Dip) NEGATIVE (NEGATIVE); UR UROBILINOGEN (Dip) 2+ mg/dL (NEGATIVE)
[2017-06-08 21:09] LABS: BASOPHILS % 0.6 % (0.0-2.0); EOSINOPHILS % 0.5 % (0.0-7.0); HEMATOCRIT 39.6 % (37.0-47.0); HEMOGLOBIN 13.6 g/dl (12.0-16.0); LYMPHOCYTES # 2.3 10^3/ul (0.8-2.9); LYMPHOCYTES % 35.4 % (15.0-51.0); MEAN CORPUSCULAR HEMOGLOBIN 30.3 pg (29.0-33.0); MEAN CORPUSCULAR HGB CONC 34.3 g/dl (32.0-37.0); MEAN CORPUSCULAR VOLUME 88.2 fl (82.0-101.0); MEAN PLATELET VOLUME 11.6 fl (7.4-10.4); MONOCYTE # 0.6 10^3/ul (0.3-0.9); MONOCYTES % 8.4 % (0.0-11.0); NEUTROPHIL # 3.6 10^3/ul (1.6-7.5); NEUTROPHILS % 54.9 % (39.0-77.0); PLATELET COUNT 177 10^3/UL (140-415); RED BLOOD COUNT 4.49 10^6/ul (4.20-5.40); RED CELL DISTRIBUTION WIDTH 13.3 % (11.5-14.5); WHITE BLOOD COUNT 6.6 10^3/ul (4.8-10.8)
--- NOTE | 2017-06-08 21:25 | RADRPT ---
PROCEDURE: Right upper quadrant abdominal ultrasound. CLINICAL INDICATION: Abdominal pain TECHNIQUE: Moy scale and color doppler ultrasound images of the right upper quadrant of the abdom en. COMPARISON: US ABDOMEN 04/07/2017 FINDINGS: Pancreas: Visualized portions appear of normal echogenicity without focal lesions. Liver: Morphology:Normal in size. Contour:Normal, no evidence of nodularity. Echogenicity: Normal. Focal lesions:None. Main portal vein: Patent with hepatopetal flow. Biliary System: Gallbladder wall: Normal thickness. Gallstones: None. 2 mm small gallbladder wall polyps/adherent sludge is unchanged. Intrahepatic bile ducts: Normal caliber. Common bile duct diameter (mm): 2.5 Kidneys: Right length (cm) : 8.1 Right cortical thickness: Normal. Echogenicity: Normal. Hydronephrosis: None. Renal calculi: None. Focal lesions: None. Free fluid/ascites: None. Abdominal aorta: Not visualized by the electric vehicle electrician. Other findings: None. IMPRESSION: No gallstones or sonographic evidence of cholecystitis. Small gallbladder wall polyp versus adherent sludge measuring up to 2 mm is similar to the prior exa mination. RPTAT: AADD .Ilan Vila MD, MD Date Time Electronically viewed and signed by .Ilan Vila MD, on 06/08/2017 21:25 .B/
--- NOTE | 2017-06-08 21:34 | ERD ---
ER Documentation Chief Complaint Chief Complaint Abdominal pain, back pain HPI The patient is a 31-year-old female who presents to the emergency department with complaint of abdominal pain radiating to the back. The patient reports that her pain is localized to the epigastric region of her abdomen, and radiates posteriorly to the back. After these symptoms initially began, 2 months ago, she was evaluated by her primary medical provider, at which time a large number of tests were performed, and patient was ultimately diagnosed with H. Pylori. She notes that she has taken the prescribed antibiotics as directed, but continues to experience the same, intermittent pain. She rates her current pain as 8/10, but notes that she has not taken any medication for relief. She denies any associated fevers, sweats, chills, nausea, vomiting, diarrhea, black/ bloody stools, chest pain, palpitations, shortness of breath, lower extremity edema, hematuria, flank pain. She does admit to mild intermittent dysuria over the past week, though states that it is not severe. Denies any new vaginal discharge or pelvic pain. No other complaints at this time. ROS All systems reviewed and are negative except as per history of present illness. Medications Home Meds Active Scripts Lorazepam* (Ativan*) 0.5 Mg Tablet, 0.5 MG PO Q8, #10 TAB Prov:SARAH PRYOR PA-C 06/10/17 Cephalexin* (Keflex*) 500 Mg Capsule, 500 MG PO QID for 7 Days, CAP Prov:JENNIFER HERNANDEZ PA-C 06/08/17 Magaldrate/Simethicone* (Mylanta*) 355 Ml Susp, 30 ML PO QID Y for GASTROINTESTINAL UPSET, #1 BOTTLE Prov:JENNIFER HERNANDEZ PA-C 06/08/17 Famotidine* (Pepcid*) 20 Mg Tablet, 20 MG PO BID for 5 Days, #20 TAB Prov:JENNIFER HERNANDEZ PA-C 06/08/17 Ondansetron (Ondansetron Odt) 4 Mg Tab.rapdis, 4 MG PO Q6H Y for NAUSEA AND/OR VOMITING, #10 TAB Prov:RADHA GUADALUPE PA-C 04/07/17 Acetaminophen* (Tylenol*) 325 Mg Tablet, 2 TAB PO Q4 Y for PAIN AND OR ELEVATED TEMP, #30 TAB Prov:RADHA GUADALUPE PA-C 04/07/17 Ondansetron (Zofran Odt) 4 Mg Tab.rapdis, 4 MG PO Q6, #10 Prov:CORINNE MEYERS DO 03/30/17 Ranitidine Hcl* (Zantac*) 150 Mg Tablet, 150 MG PO BID, #60 TAB Prov:CORINNE MEYERS DO 03/30/17 Allergies Allergies: Coded Allergies: No Known Allergy (Unverified , 03/30/17) PMhx/Soc History of Surgery: Yes () Anesthesia Reaction: No Hx Neurological Disorder: No Hx Respiratory Disorders: No Hx Cardiac Disorders: No Hx Psychiatric Problems: No Hx Miscellaneous Medical Probl: No Hx Alcohol Use: No Hx Substance Use: No Hx Tobacco Use: No Smoking Status: Never smoker Physical Exam Vitals Vital Signs Date Time Temp Pulse Resp B/P Pulse Ox O2 Delivery O2 Flow Rate FiO2 06/08/17 21:58 97.7 63 16 118/69 100 Room Air 06/08/17 17:12 98.0 71 18 118/64 100 Physical Exam GENERAL: Well-developed, well-nourished, in no acute distress. HEENT: Head is normocephalic, atraumatic. No scleral pallor or icterus. Extraocular movements intact. Conjunctiva pink. Moist mucous membranes. NECK: Supple. Full range of motion. RESPIRATORY: Lungs are clear to auscultation bilaterally. No rales, rhonchi or wheezing. Equal breath sounds. Normal expiratory effort. CARDIOVASCULAR: Regular rate and rhythm. GASTROINTESTINAL: Abdomen is soft, nontender, and nondistended. No guarding, no rebound tenderness. Normal bowel sounds. No gross peritonitis. Negative Hammonds' s sign. No tenderness at McBurney's point. FLANK: No CVA tenderness, no mass or swelling. BACK: No midline tenderness. No paraspinal tenderness. Normal range of motion. EXTREMITIES: No clubbing, cyanosis, or edema. Normal skin perfusion.Moving all extremities. Muscle tone is normal. No focal swelling or erythema. NEUROLOGIC: The patient is alert, awake, and oriented x 3. No focal neurologic deficits. INTEGUMENT: Skin is clean, dry and intact. PSYCHIATRIC: Appropriate; Cooperative. Result Diagram: 06/08/17204406/08/171941 Results 24 hrs Laboratory Tests Test 06/08/17 19:42 06/08/17 20:00 06/08/17 20:45 Sodium Level 144mmol/L Potassium Level 4.5mmol/L Chloride Level 103mmol/L Carbon Dioxide Level 26mmol/L Anion Gap 20 Blood Urea Nitrogen 7mg/dl Creatinine 0.67mg/dl Glucose Level 88mg/dl Calcium Level 9.5mg/dl Total Bilirubin 1.1mg/dl Direct Bilirubin 0.00mg/dl Indirect Bilirubin 1.1mg/dl Aspartate Amino Transf (AST/SGOT) 47IU/L Alanine Aminotransferase (ALT/SGPT) 36IU/L Alkaline Phosphatase 90IU/L Total Protein 8.5g/dl Albumin 4.8g/dl Globulin 3.70g/dl Albumin/Globulin Ratio 1.29 Lipase 55U/L Urine Color YELLOW Urine Clarity SLIGHTLY CLOUDY Urine pH 7.0 Urine Specific [place] 1.016 Urine Ketones 1+mg/dL Urine Nitrite NEGATIVEmg/dL Urine Bilirubin NEGATIVEmg/dL Urine Urobilinogen 2+mg/dL Urine Leukocyte Esterase 2+Lory/ul Urine Microscopic RBC 4/HPF Urine Microscopic WBC 4/HPF Urine Squamous Epithelial Cells FEW/HPF Urine Mucus FEW/HPF Urine Hemoglobin NEGATIVEmg/dL Urine Glucose NEGATIVEmg/dL Urine Total Protein NEGATIVEmg/dl White Blood Count 6.610^3/ul Red Blood Count 4.4910^6/ul Hemoglobin 13.6g/dl Hematocrit 39.6% Mean Corpuscular Volume 88.2fl Mean Corpuscular Hemoglobin 30.3pg Mean Corpuscular Hemoglobin Concent 34.3g/dl Red Cell Distribution Width 13.3% Platelet Count 04410^3/UL Mean Platelet Volume 11.6fl Neutrophils % 54.9% Lymphocytes % 35.4% Monocytes % 8.4% Eosinophils % 0.5% Basophils % 0.6% Nucleated Red Blood Cells % 0.0/100WBC Neutrophils # 3.610^3/ul Lymphocytes # 2.310^3/ul Monocytes # 0.610^3/ul Eosinophils # 0.010^3/ul Basophils # 0.010^3/ul Nucleated Red Blood Cells # 0.010^3/ul Current Medications Medications (Trade) Dose Ordered Sig/Priya Route PRN Reason Start Time Stop Time Status Last Admin Dose Admin Sodium Chloride (NS) 1,000 ml @ 1,000 mls/hr Q1H STAT IV 06/08/17 19:18 06/08/17 20:17 DC 06/08/17 19:33 Famotidine (Pepcid Iv) 20 mg ONCE STAT IV 06/08/17 19:18 06/08/17 19:20 DC 06/08/17 19:35 Ketorolac Tromethamine (Toradol) 30 mg ONCE STAT IV 06/08/17 19:18 06/08/17 19:21 DC Miscellaneous Medication (Gi Cocktail (2)) 40 ml ONCE ONCE PO 06/08/17 19:30 06/08/17 19:31 DC 06/08/17 19:35 Acetaminophen/ Hydrocodone Bitart ([place] (5/325)) 1 tab ONCE ONCE PO 06/08/17 19:30 06/08/17 19:31 DC 06/08/17 19:36 Ondansetron HCl (Zofran Inj) 4 mg ONCE STAT IV 06/08/17 19:48 06/08/17 19:49 DC 06/08/17 20:08 Procedures/MDM DIAGNOSTIC TESTS AND INTERPRETATION: PROCEDURE: XR Chest. CLINICAL INDICATION: Epigastric pain. TECHNIQUE: AP view of the chest was obtained. COMPARISON: 08/15/2016 FINDINGS:The cardiomediastinal silhouette is within normal limits. The lungs are clear. No signs of pleural fluid or pneumothorax are seen. The osseous structures and soft tissues are unremarkable. IMPRESSION: 1. No evidence for active cardiopulmonary disease. .Lul Menendez MD, MD Date Time Electronically viewed and signed by .Lul Menendez MD, on 06/08/2017 20: 29 PROCEDURE: Right upper quadrant abdominal ultrasound. CLINICAL INDICATION: Abdominal pain TECHNIQUE: Moy scale and color doppler ultrasound images of the right upper quadrant of the abdomen. COMPARISON: US ABDOMEN 04/07/2017 FINDINGS: Pancreas: Visualized portions appear of normal echogenicity without focal lesions. Liver: Morphology:Normal in size. Contour:Normal, no evidence of nodularity. Echogenicity: Normal. Focal lesions:None. Main portal vein: Patent with hepatopetal flow. Biliary System: Gallbladder wall: Normal thickness. Gallstones: None. 2 mm small gallbladder wall polyps/adherent sludge is unchanged. Intrahepatic bile ducts: Normal caliber. Common bile duct diameter (mm): 2.5 Kidneys: Right length (cm) : 8.1 Right cortical thickness: Normal. Echogenicity: Normal. Hydronephrosis: None. Renal calculi: None. Focal lesions: None. Free fluid/ascites: None. Abdominal aorta: Not visualized by the business office technology instructor. Other findings: None. IMPRESSION: No gallstones or sonographic evidence of cholecystitis. Small gallbladder wall polyp versus adherent sludge measuring up to 2 mm is similar to the prior examination. .Ilan Vila MD, MD Date Time Electronically viewed and signed by .Ilan Vila MD, on 06/08/2017 21:25 MEDICAL DECISION MAKING: This is a 31-year-old female presenting to the Emergency Department with complaint of epigastric abdominal pain radiating to the back for the past 2 months, and mild dysuria for the past 1 week. She had no significant abnormalities on physical examination. Vital signs were stable. Differential diagnosis includes, but is not limited to, gastroenteritis, gastritis, cholecystitis, cholangitis, choledocholithiasis, pancreatitis, perforated viscus, mesenteric ischemia, GERD, PUD, urinary tract infection, UTI , pyelonephritis, pneumonia, hepatitis, IBD, aortic dissection, torsion, bowel obstruction, appendicitis, diverticulitis. Urinalysis revealed 2+ urine leukocyte esterase, concerning for urinary tract infection. Urine culture sent. Chest x-ray with no acute cardiopulmonary abnormalities. US imaging with a small gallbladder wall polyp vs. adherent sludge (similar to prior), but otherwise, no gallstones or evidence of cholecystitis. After rest and administration of fluids and medications, the patient reports no new complaints and much decreased pain and symptoms. Upon review and interpretation of the patient's presentation and overall ER course, I believe the patient's symptoms are most consistent with epigastric abdominal pain, back pain and urinary tract infection. Patient may have underlying gastritis, but will require further outpatient evaluation to confirm the diagnosis. I doubt cholecystitis, no abnormalities or indication of disease process noted on ultrasound, negative Hammonds's sign. Doubt acute coronary syndrome - symptoms and examination inconsistent. Doubt pancreatitis - clinical presentation inconsistent. Doubt perforated ulcer, patient has a non -surgical abdomen. Doubt small bowel obstruction, patient is passing flatus, abdomen is non-distended. Doubt appendicitis, patient has no McBurney's point tenderness, no guarding, non-surgical abdomen, no tenderness over the RLQ. Doubt diverticulitis, exam inconsistent. Doubt ischemic bowel, no pain out of proportion to examination. Doubt torsion, symptoms and examination inconsistent. At this time, the patient is in stable condition and therefore can be discharged home with prescriptions for Mylanta, Pepcid, Keflex, and strict return precautions for signs of deteriorating or worsening condition. She is advised to follow up with her primary care provider in 1-2 days for reevaluation and further management, or return to the ER sooner if symptoms worsen. I shared my medical decision making, plan, as well as the results with the patient at length and in great detail, and she verbally understands and agrees with the plan for further observation and care as an outpatient. At the time of discharge, all questions were answered. Departure Diagnosis: Primary Impression: Epigastric pain Additional Impressions: Back pain Back pain location: back pain in unspecified location Chronicity: acute Back pain laterality: bilateral Qualified Code: M54.9 - Acute bilateral back pain, unspecified back location Urinary tract infection Urinary tract infection type: site unspecified Hematuria presence: without hematuria Qualified Code: N39.0 - Urinary tract infection without hematuria, site unspecified Condition: Stable Patient Instructions: Back Pain (Acute Or Chronic), Epigastric Pain (Uncertain Cause), Understanding Urinary Tract Infections (UTIs), Urinary Tract Infections in Women Additional Instructions: Llame al doctor MAANA y preet dennise LIZETH PARA DENTRO DE 1-2 GUERRERO.Dgale a la secretaria que nosotros le instruimos hacer esta lizeth.Avise o llame si collier condicin se empeora antes de la lizeth. Regresa aqui si peor o no mejor. JENNIFER HERNANDEZ PA-C Jun 08, 2017 21:34
[2017-06-08] MEDS ORDERED: FAMO-96 PO (21:36)
[2017-06-08] MEDS ORDERED: MAG-19 PO (21:36)
[2017-06-08] MEDS ORDERED: CEPH-443 PO (21:37)
[2017-06-08 21:58] VITALS: BP 118/69; PULSE 63; RESP 16; TEMP 97.7
== END 2017-06-08 22:00 | disposition home or self-care (01) ==
LOC: FTE 17:10
DX: N39.0 Urinary tract infection, site not specified (principal)
CPT/HCPCS: 36415; 71010; 76705; 80053; 81001; 83690; 85025; 87086; 96374; 96375; J2405; J7030; Z7502; Z7610

== ENCOUNTER 2017-06-10 13:29 | Emergency (ER) | payer MEDICAID ==
[~2017-06-10] VITALS: Ht 157.5 cm; Wt 53.0 kg
[~2017-06-10 13:29] MED LIST changes: +CEPH-443 PO; +FAMO-96 PO; +MAG-19 PO
[2017-06-10 13:33] VITALS: Ht 157.5 cm; Wt 53.0 kg
[2017-06-10] MEDS ORDERED: LORAZEPAM 2 MG INJ IM ONE (16:00)
[2017-06-10] MEDS ORDERED: LORAZEPAM 0.5 MG TAB PO ONE (16:00)
--- NOTE | 2017-06-10 16:57 | ERD ---
ER Documentation Chief Complaint Chief Complaint anxiety this morning HPI 31 year old female comes in with chest pain, bilateral numbness, shakiness, dizziness that started this afternoon. Patient has numbness in both of her fingertips, chest pain on left side. The patient states that she has felt dizzy with this as well. She denies syncope, fevers. ROS All systems reviewed and are negative except as per history of present illness. Medications Home Meds Active Scripts Lorazepam* (Ativan*) 0.5 Mg Tablet, 0.5 MG PO Q8, #10 TAB Prov:SARAH PRYOR PA-C 06/10/17 Cephalexin* (Keflex*) 500 Mg Capsule, 500 MG PO QID for 7 Days, CAP Prov:JENNIFER HERNANDEZ PA-C 06/08/17 Magaldrate/Simethicone* (Mylanta*) 355 Ml Susp, 30 ML PO QID Y for GASTROINTESTINAL UPSET, #1 BOTTLE Prov:JENNIFER HERNANDEZ PA-C 06/08/17 Famotidine* (Pepcid*) 20 Mg Tablet, 20 MG PO BID for 5 Days, #20 TAB Prov:JENNIFER HERNANDEZ PA-C 06/08/17 Ondansetron (Ondansetron Odt) 4 Mg Tab.rapdis, 4 MG PO Q6H Y for NAUSEA AND/OR VOMITING, #10 TAB Prov:RADHA UGADALUPE PA-C 04/07/17 Acetaminophen* (Tylenol*) 325 Mg Tablet, 2 TAB PO Q4 Y for PAIN AND OR ELEVATED TEMP, #30 TAB Prov:RADHA GUADALUPE PA-C 04/07/17 Ondansetron (Zofran Odt) 4 Mg Tab.rapdis, 4 MG PO Q6, #10 Prov:CORINNE MEYERS DO 03/30/17 Ranitidine Hcl* (Zantac*) 150 Mg Tablet, 150 MG PO BID, #60 TAB Prov:CORINNE MEYERS DO 03/30/17 Allergies Allergies: Coded Allergies: No Known Allergy (Unverified , 03/30/17) PMhx/Soc History of Surgery: Yes () Anesthesia Reaction: No Hx Neurological Disorder: No Hx Respiratory Disorders: No Hx Cardiac Disorders: No Hx Psychiatric Problems: No Hx Miscellaneous Medical Probl: No Hx Alcohol Use: No Hx Substance Use: No Hx Tobacco Use: No Smoking Status: Never smoker Physical Exam Vitals Vital Signs Date Time Temp Pulse Resp B/P Pulse Ox O2 Delivery O2 Flow Rate FiO2 06/10/17 13:33 98.7 91 22 133/81 100 Physical Exam General: Well-developed, well-nourished. The patient appears in no acute distress. HEENT: Head is normocephalic, atraumatic. No scleral icterus. Neck: Supple. Nontender. Lungs: Clear to auscultation. Normal air movement. She has left-sided chest wall tenderness with palpation. Heart: Regular rate and rhythm. S1 and S2 are normal. No murmurs, gallops, or rubs. Abdomen: Soft, nontender, nondistended. Bowel sounds are normoactive. Extremities: No clubbing or cyanosis. Normal pulses. Moving extremities x 4. No weakness. Neurologic: Alert and oriented 3. No focal deficits. Skin: Normal turgor. No rash or lesions. Results 24 hrs Laboratory Tests Test 06/10/17 16:32 Bedside Glucose 72mg/dL Current Medications Medications (Trade) Dose Ordered Sig/Priya Route PRN Reason Start Time Stop Time Status Last Admin Dose Admin Lorazepam (Ativan) 0.5 mg ONCE ONCE PO 06/10/17 16:00 06/10/17 16:00 DC Lorazepam (Ativan) 0.5 mg ONCE ONCE IM 06/10/17 16:00 06/10/17 16:02 DC 06/10/17 16:41 12-lead EKG(interpreted by supervising physician): Rate/Rhythm: [Normal Sinus Rhythm], rate of 61 QRS, ST, T-waves: [No changes consistent w/ acute ischemia], no intervals, no dysrhythmias, no ectopy Impression: [No evidence of ischemia or arrhythmia] Procedures/MDM 31-year-old female comes in with numbness to her fingers, chest pain, dizziness , patient symptoms are most consistent with anxiety. The patient's symptoms were treated with Ativan intramuscularly she states that her pain is improved. She has left-sided chest pain going to her bilateral shoulders, with bilateral fingertip numbness. She is neurovascularly neurologically intact, no signs of stroke, TIA. Her chest pain is reproducible on examination with palpation is most consistent with chest wall tenderness. She is PERC negative. Suspicion for acute coronary syndrome, pulmonary embolus, dissection is low. Patient at this time was reevaluated after receiving Ativan states that she is feeling much better and will be discharged home. Departure Diagnosis: Primary Impression: Anxiety Condition: Good SARAH PRYOR PA-C Jun 10, 2017 16:57
[2017-06-10] MEDS ORDERED: LORA-441 PO (17:08)
== END 2017-06-10 17:53 | disposition home or self-care (01) ==
LOC: FTE 13:29
DX: F41.9 Anxiety disorder, unspecified (principal); R07.9 Chest pain, unspecified
CPT/HCPCS: 82962; 93005; 96372; J2060; Z7502

== ENCOUNTER 2017-06-29 20:09 | Emergency (ER) | END 2017-06-30 03:01 | disposition home or self-care (01) ==

== ENCOUNTER 2017-07-01 13:42 | Emergency (ER) | END 2017-07-01 18:16 | disposition home or self-care (01) ==